=== PATIENT | male | born 1965 | race Caucasian/White ===

== ENCOUNTER 2024-07-18 17:36 | Emergency (ER) | payer SELFPAY ==
[~2024-07-18] VITALS: Ht 177.8 cm; Wt 74.8 kg
[2024-07-18] MEDS ORDERED: Tdap Vaccine 0.5 ML SYR (Adult Vaccine) IM ONE (18:30)
[2024-07-18] MEDS ORDERED: EPINEPHrine/Lidocaine Hydroc 20 ML VIAL IJ ONE (19:25)
[2024-07-18] MEDS ORDERED: CEPHALEXIN500 M1 PO (20:47)
== END 2024-07-18 20:56 | disposition home or self-care (01) ==
LOC: ED 17:36
DX: S50.851A Superficial foreign body of right forearm, initial encounter (principal); E78.00 Pure hypercholesterolemia, unspecified; W45.8XXA Other foreign body or object entering through skin, initial encounter; Y93.89 Activity, other specified; Y92.009 Unspecified place in unspecified non-institutional (private) residence as the place of occurrence of the external cause; Y99.0 Civilian activity done for income or pay